=== PATIENT | male | born 1990 | race Two or more races ===

== ENCOUNTER 2018-08-23 20:34 | Emergency (ER) | payer MEDICAID ==
[~2018-08-23] VITALS: Ht 180.3 cm; Wt 91.0 kg
--- NOTE | 2018-08-23 21:07 | NUR ---
PT STATES HE HAS HAD A COUGH AND BEEN FEELING ILL FOR A FEW DAYS. OVER ALL CHILLS, MUSCLE CRAMPS, NAUSEA, BUT DENIES VOMITTING.
[2018-08-23] MEDS ORDERED: methylPREDNISolone SOD SUCC 125 MG/2 ML ONE (21:26)
[2018-08-23] MEDS ORDERED: SODIUM CHLORIDE FLUSH 10ML SYR IVF ONE (21:30)
[2018-08-23] MEDS ORDERED: methylPREDNISolone SOD SUCC 125 MG/2 ML IVP ONE (21:30)
[2018-08-23] MEDS ORDERED: ALBUTEROL/IPRATROPIUM 2.5MG/0.5MG, 3 ML NPPB SCH (21:30)
[2018-08-23] MEDS ORDERED: ALBUTEROL/IPRATROPIUM 2.5MG/0.5MG, 3 ML ONE (21:34)
--- NOTE | 2018-08-23 21:36 | NUR ---
RT IN TO PROVIDE BREATHING TREATMENT. PT MEDICATED PER EMAR
[2018-08-23 21:53] LABS: BASOPHILS # (AUTO) 0.04 x10^3/uL (0-0.1); BASOPHILS % (AUTO) 0 % (0-1); EOSINOPHILS # (AUTO) 0.37 x10^3/uL (0-0.4); EOSINOPHILS % (AUTO) 4 % (1-7); LYMPHOCYTES # (AUTO) 1.67 x10^3/uL (1-3.4); LYMPHOCYTES % (AUTO) 16 % (22-44); MD NO; MEAN CORPUSCULAR HEMOGLOBIN 29.9 pg (27.5-34.5); MEAN CORPUSCULAR HGB CONC 32.9 g/dL (33.2-36.2); MEAN CORPUSCULAR VOLUME 90.9 fL (81-97); MEAN PLATELET VOLUME 7.4 fL (7.4-10.4); MONOCYTES # (AUTO) 0.79 x10^3/uL (0.2-0.8); MONOCYTES % (AUTO) 8 % (2-9); NEUTROPHILS # (AUTO) 7.34 x10^3/uL (1.8-6.8); NEUTROPHILS % (AUTO) 72 % (42-75); PLATELET COUNT 302 x10^3/uL (130-400); RED BLOOD COUNT 5.07 x10^6/uL (4.38-5.82); RED CELL DISTRIBUTION WIDTH 14.8 % (9.4-14.8)
[2018-08-23 22:05] LABS: ALANINE AMINOTRANSFERASE 49 U/L (12-78); ALBUMIN 3.8 g/dL (3.4-5.0); ANION GAP 7 mmol/L (5-15); CALCIUM 9.2 mg/dL (8.5-10.1); CHLORIDE 106 mmol/L (98-107); CREATININE 0.98 mg/dL (0.7-1.3)
[2018-08-23 22:07] LABS: ALKALINE PHOSPHATASE 92 U/L (45-117); BILIRUBIN,TOTAL 0.9 mg/dL (0.2-1.0)
--- NOTE | 2018-08-23 22:12 | NUR ---
PT STATES HE FEELS A LOT BETTER AFTER THE MEDICATION AND BREATHING TREATMENT BUT STATES IF HE BREATHS TOO DEEP, THERE IS PAIN
--- NOTE | 2018-08-23 22:15 | NUR ---
PT DIAGNOSTICS HAVE BEEN RESULTED AND PT PALACED UP FOR RECHECK BY JOSEFINA COLLINS
--- NOTE | 2018-08-23 22:26 | NUR ---
PT TO CT
[2018-08-23] MEDS ORDERED: ACETAMINOPHEN 500 MG TABLET PO ONE (22:30)
[2018-08-23] MEDS ORDERED: ACETAMINOPHEN 500 MG TABLET ONE (22:35)
[2018-08-23] MEDS ORDERED: OMNIPAQUE 350 MG/ML, 100ML BOTTLE ONE (22:54)
[2018-08-23 23:04] VITALS: BP 105/69
--- NOTE | 2018-08-23 23:04 | NUR ---
PT RESTING ON GURNEY. PT MEDICATED PER EMAR
== END 2018-08-23 23:28 | disposition home or self-care (01) ==
LOC: ED 23:10
DX: J20.9 Acute bronchitis, unspecified (principal); F17.200 Nicotine dependence, unspecified, uncomplicated
CPT/HCPCS: 36415; 71045; 71275; 80053; 85025; 93005; 94640; 96374; 99284; J2930; J7620; Q9967

== ENCOUNTER 2019-08-23 04:28 | Emergency (ER) | payer MEDICAID ==
[~2019-08-23] VITALS: Ht 177.8 cm; Wt 80.0 kg
[2019-08-23] MEDS ORDERED: ALBUTEROL SULFATE 2.5 MG/3 ML ONE (04:45)
--- NOTE | 2019-08-23 04:52 | NUR ---
PT IN BY JOON WITH C/O SOB X 8 HOURS, PT STATES HX OF ASTHMA RAN OUT OF INHALER 1 WEEK AGO, PT STATES TOOK A STEAMY SHOWER AND PUT VICKS ON HIS CHEST, GF CALLED [phone] DUE TO INCREASING SOB, DUO NEB X 2 IN ROUTE AND ONE ATROVENT, PT SPEAKING IN FULL SENTENCES UPON ARRIVAL AND RR 19, LUNGS SOUNDS WHEEZES THROUGHT
[2019-08-23] MEDS ORDERED: ALBUTEROL SULFATE 2.5 MG/3 ML NPPB ONE (05:30)
[2019-08-23] MEDS ORDERED: ALBUTEROL/IPRATROPIUM 2.5MG/0.5MG, 3 ML ONE ×2 (06:15→06:17)
--- NOTE | 2019-08-23 06:22 | NUR ---
PT SAT 88 ON ROOM AIR, BELEN DOUGLAS INFORMED DUO SUSY STARTED
[2019-08-23] MEDS ORDERED: ALBUTEROL/IPRATROPIUM 2.5MG/0.5MG, 3 ML NPPB ONE (06:30)
--- NOTE | 2019-08-23 06:52 | NUR ---
report from [facility]ago
[2019-08-23 08:16] VITALS: BP 129/70
--- NOTE | 2019-08-23 08:16 | NUR ---
Patient/Caregiver given discharge instructions and they have confirmed that they understand the instructions. Patient ambulatory with steady gait.
== END 2019-08-23 08:18 | disposition home or self-care (01) ==
LOC: ED 04:58
DX: J45.41 Moderate persistent asthma with (acute) exacerbation (principal)
CPT/HCPCS: 71045; 94640; 99284; J7512; J7613

== ENCOUNTER 2020-08-13 19:05 | Emergency (ER) | payer MEDICAID ==
[~2020-08-13] VITALS: Ht 177.8 cm; Wt 94.5 kg
[2020-08-13] MEDS ORDERED: ACETAMINOPHEN 500 MG TABLET ONE (19:14)
--- NOTE | 2020-08-13 19:17 | NUR ---
tylenol 1gm at triage
--- NOTE | 2020-08-13 19:28 | NUR ---
PT HAS CO FEVER, BODY ACHES. NO COUGH. STARTED LAST NIGHT. SOME N/V. DENIES CP. TYLENOL IN TRIAGE.
[2020-08-13] MEDS ORDERED: ACETAMINOPHEN 500 MG TABLET PO ONE (19:30)
[2020-08-13] MEDS ORDERED: SODIUM CHLORIDE 0.9% 1,000ML IVBOLUS ONE ×2 (19:30→20:30)
[2020-08-13 19:57] LABS: BASOPHILS % (AUTO) 0 % (0-1); EOSINOPHILS % (AUTO) 0 % (1-7); LYMPHOCYTES % (AUTO) 8 % (22-44); MEAN CORPUSCULAR HEMOGLOBIN 30.5 pg (27.5-34.5); MEAN CORPUSCULAR HGB CONC 34.1 g/dL (33.2-36.2); MEAN PLATELET VOLUME 7.3 fL (7.4-10.4); MONOCYTES % (AUTO) 6 % (2-9); NEUTROPHILS % (AUTO) 86 % (42-75); PLATELET COUNT 327 x10^3/uL (130-400); RED BLOOD COUNT 5.58 x10^6/uL (4.38-5.82); RED CELL DISTRIBUTION WIDTH 13.6 % (9.4-14.8)
--- NOTE | 2020-08-13 19:57 | NUR ---
REPORT TO [facility]
--- NOTE | 2020-08-13 20:02 | NUR ---
REPORT FROM HARMONY GASTON
[2020-08-13 20:05] LABS: ALBUMIN 3.7 g/dL (3.4-5.0); ANION GAP 6 mmol/L (5-15); CALCIUM 8.9 mg/dL (8.5-10.1); CHLORIDE 104 mmol/L (98-107)
[2020-08-13] MEDS ORDERED: IBUPROFEN 600 MG TABLET ONE (20:13)
[2020-08-13] MEDS ORDERED: IBUPROFEN 600 MG TABLET PO ONE (20:30)
[2020-08-13] MEDS ORDERED: SODIUM CHLORIDE FLUSH 10ML SYR IVF ONE (20:30)
[2020-08-13 21:07] LABS: BILIRUBIN, DIRECT 0.3 mg/dL (0.1-0.2)
[2020-08-13 21:09] LABS: BILIRUBIN,TOTAL 0.9 mg/dL (0.2-1.0); TOTAL PROTEIN 7.7 g/dL (6.4-8.2)
[2020-08-13] MEDS ORDERED: METOCLOPRAMIDE 5 MG/ML, 2ML ONE (21:11)
[2020-08-13] MEDS ORDERED: DIPHENHYDRAMINE 50 MG/ML, 1ML ONE (21:11)
[2020-08-13 21:28] VITALS: BP 113/72
[2020-08-13] MEDS ORDERED: CEFTRIAXONE 2 GM in DEXTROSE 5% 50 ML IVPB ONE (21:30)
[2020-08-13] MEDS ORDERED: DIPHENHYDRAMINE 50 MG/ML, 1ML IVPush ONE (21:30)
[2020-08-13] MEDS ORDERED: METOCLOPRAMIDE 5 MG/ML, 2ML IVPush ONE (21:30)
[2020-08-13 21:38] LABS: MICROSCOPIC NOT IND
== END 2020-08-13 22:22 | disposition home or self-care (01) ==
LOC: ED 21:45
DX: R50.9 Fever, unspecified (principal); Z20.822 Contact with and (suspected) exposure to COVID-19; B34.9 Viral infection, unspecified; R11.2 Nausea with vomiting, unspecified; R51.9 Headache, unspecified; F17.210 Nicotine dependence, cigarettes, uncomplicated; R00.0 Tachycardia, unspecified; J45.909 Unspecified asthma, uncomplicated
CPT/HCPCS: 36415; 71045; 80048; 81003; 83605; 83690; 84145; 85025; 87040; 96361; 96365; 96375; 99284; 99406; J0696; J1200; J2765; J7030; U0003; U0005; 82040; 82247; 82248; 84075; 84155; 84450; 84460